=== PATIENT | male | born 1965 | race Caucasian/White ===

== ENCOUNTER 2016-10-14 15:14 | Inpatient (IN) | payer MEDICARE ==
[2016-10-14] MEDS ORDERED: SODIUM CHLORIDE 0.9% 1,000 ML IV STA (15:56)
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
[2016-10-14 16:30] LABS: Basophils % (A) 0 %; CH 30.2; CHCM 33.6; Eosinophils % (A) 0 %; Glucose,Whole Blood 99 mg/dL (75-99); HCT 42.5 % (39.0-53.0); HDW 2.24; Luc # (Auto) 0.11; Luc % (Auto) 2; Lymphocytes # (A) 1.8 k/uL (1.0-4.8); Lymphocytes % (A) 34 %; MCH 29.7 pg (25.0-35.0); MCHC 32.9 g/dL (31.0-37.0); MCV 90.2 fL (80.0-100.0); Monocytes # (A) 0.4 k/uL (0-1.0); Monocytes % (A) 8 %; Neutrophils # (A) 2.9 k/uL (1.3-7.7); Neutrophils % (A) 55 %; RBC 4.71 m/uL (4.30-5.90); RDW 12.9 % (11.5-15.5); WBC 5.2 k/uL (3.8-10.6); WBC (Perox) 5.14
[2016-10-14 16:37] LABS: INR 1.1 (<1.1); Partial Thromboplastin Time 24.8 sec (22.0-30.0); Prothrombin Time 10.9 sec (9.0-12.0)
[2016-10-14 16:39] LABS: ALT 26 U/L (21-72); AST 18 U/L (17-59); Alkaline Phosphatase 49 U/L (38-126); Anion Gap 12 mmol/L; Blood Urea Nitrogen 12 mg/dL (9-20); Calcium 9.9 mg/dL (8.4-10.2); Carbon Dioxide 25 mmol/L (22-30); Chloride 105 mmol/L (98-107); Glucose 112 mg/dL (74-99); Magnesium 1.7 mg/dL (1.6-2.3); Non-African American GFR(MDRD) >60 (>60 ml/min/1.73 sqM); Potassium 4.7 mmol/L (3.5-5.1); Sodium 142 mmol/L (137-145); Total Bilirubin 0.4 mg/dL (0.2-1.3); Total Protein 6.8 g/dL (6.3-8.2)
--- NOTE | 2016-10-14 16:40 | CT ---
EXAMINATION TYPE: CT brain wo con DATE OF EXAM: 10/14/2016 4:28 PM COMPARISON: NONE INDICATION: weakness and fatigue DLP: 1108.4 mGycm, Automated exposure control for dose reduction was used. CONTRAST: None CT of the brain is performed utilizing 3 mm thick sections through the posterior fossa and 3 mm thick sections through the remaining calvarium. Study is performed within 24 hours of arrival to the hosp ital. No abnormal hyperdensity is present to suggest an acute intracranial hemorrhage. No mass lesion is evident. No acute infarcts are evident. There is an old left parietal infarct. There is an old small frontal p arietal infarct on the left. There is mild ex vacuo effect on the left lateral ventricle. Ventricles and sulci are appropriate for the patient age. Paranasal sinuses and mastoid air cells within the [id number] are clear. IMPRESSIONS: 1. Old left frontal parietal and left parietal infarcts.
--- NOTE | 2016-10-14 16:42 | XR ---
EXAMINATION TYPE: XR chest 2V DATE OF EXAM: 10/14/2016 4:35 PM COMPARISON: NONE INDICATION: Weakness right side slurred speech TECHNIQUE: Single frontal view of the chest is obtained. FINDINGS: The heart size is normal. The pulmonary vasculature is normal. The lungs are clear. IMPRESSION: 1. No acute pulmonary process.
[2016-10-14 16:51] LABS: Creatine Kinase 131 U/L (55-170)
[2016-10-14 17:04] LABS: Creatine Kinase MB 0.5 ng/mL (0.0-2.4); Troponin I <0.012 ng/mL (0.000-0.034)
[2016-10-14 17:18] LABS: Amorphous Sediment,Urine Rare /hpf; Appearance,Urine Cloudy (Clear); Bacteria,Urine Occasional /hpf; Bilirubin,Urine Negative (Negative); Glucose,Urine (UA) Negative (Negative); Ketones,Urine 1+ (Negative); Leukocyte Esterase,Urine Negative (Negative); Nitrite,Urine Negative (Negative); PH, Urine 8.5 (5.0-8.0); Particle Count 18469; Protein,Urine Negative (Negative); Specific Gravity,Urine 1.014 (1.001-1.035); UA Billing (MACRO vs. MICRO) MICRO; Urobilinogen,Urine <2.0 mg/dL (<2.0); WBC,Urine 5 /hpf (0-5)
[2016-10-14] MEDS ORDERED: MAGNESIUM SULFATE-D5W PMX 1 GM in DEXTROSE/WATER 1 100ML.BAG IVPB ONE (17:35)
[2016-10-14] MEDS: SODIUM CHLORIDE 0.9% 1,000 ML IV SCH (22:02)
[2016-10-14] MEDS: GABAPENTIN 300 MG CAP PO SCH (22:05)
[2016-10-14] MEDS: DIVALPROEX 250 MG TABLET.DR PO SCH (22:05)
[2016-10-15] MEDS: SODIUM CHLORIDE 0.9% 1,000 ML IV SCH ×2 (05:54→17:26)
--- NOTE | 2016-10-15 08:20 | US ---
EXAMINATION TYPE: US carotid duplex BILAT DATE OF EXAM: 10/15/2016 8:01 AM COMPARISON: No previous CLINICAL HISTORY: Stenosis. Stroke EXAM MEASUREMENTS: RIGHT: Peak Systolic Velocity (PSV) cm/sec ----- Right CCA: 63.3 ----- Right ICA: 90.8 ----- Right ECA: 106.3 ICA/CCA ratio: 1.4 RIGHT: End Diastole cm/sec ----- Right CCA: 20.6 ----- Right ICA: 41.3 ----- Right ECA: 22.7 LEFT: Peak Systolic Velocity (PSV) cm/sec ----- Left CCA: 64.1 ----- Left ICA: 59.8 ----- Left ECA: 75.4 ICA/CCA ratio: 0.9 LEFT: End Diastole cm/sec ----- Left CCA: 19.3 ----- Left ICA: 22.3 ----- Left ECA: 19.3 VERTEBRALS (direction of flow): Right Vertebral: Antegrade Left Vertebral: Antegrade TECHNOLOGIST IMPRESSION: Bilateral intimal thickening, minimal plaque right bulb, no elevated veloci ties, no significant stenosis IMPRESSION: I do not see evidence of a hemodynamically significant stenosis in either carotid system. Criteria for Assigning % of Stenosis / Diameter reduction (Estimation based on the indirect measurements of the internal carotid artery velocities (ICA PSV). 1. Normal (no stenosis)=ICA PSV < 125 cm/s: ratio < 2.0: ICA EDV<40 cm/s. 2. Less than 50% stenosis=ICA PSV < 125 cm/s: ratio < 2.0: ICA EDV<40 cm/s. 3. 50 to 69% stenosis=ICA PSV of 125 to 230 cm/s: ration 2.0 ? 4.0: ICA EDV 40-100 cm/s. 4. Greater than 70% stenosis to near occlusion= ICA PSV > 230 cm/s: ratio > 4.0: ICA EDV > 100 cm/s. 5. Near occlusion= ICA PSV velocities may be low or undetectable: variable ratio and ICA EDV. 6. Total occlusion=unable to detect flow.
[2016-10-15] MEDS: ATORVASTATIN 80 MG TAB PO SCH (08:39)
[2016-10-15] MEDS: DIVALPROEX 250 MG TABLET.DR PO SCH ×2 (08:39→20:53)
[2016-10-15] MEDS: GABAPENTIN 300 MG CAP PO SCH ×2 (08:39→17:25)
[2016-10-15] MEDS ORDERED: LISINOPRIL 20 MG TAB PO SCH (09:00)
[2016-10-15] MEDS ORDERED: ASPIRIN 81 MG CHEW PO SCH (09:00)
[2016-10-15] MEDS: MULTIVITAMINS, THERA 1 EACH TAB PO SCH (15:01)
--- NOTE | 2016-10-15 16:15 | HP ---
DATE OF ADMISSION: 10/14/2016 51 -year-old admitted with significant residual weakness on the right side of the body. The patient has ( ) in the past. Came in with complaints of ( ) came in with multiple nonspecific neurological complaints including possible loss of consciousness for about 20 minutes about a couple of days ago. Since then, the patient was extensively drowsy. No seizure like activity at that time. It is not even very clear that the patient actually lost consciousness ( ). was unable to wake him up for about 20 minutes. The patient denied any weakness at that time. The patient was tired all day. Apparently, yesterday, ( ) drowsy. The patient also while sleeping yesterday had some shakiness or seizure like activity only in the left arm and the patient was arousable at that time. The patient did not ( ) bowel or bladder incontinence. The patient is on Depakote. A year ago, patient had similar symptoms of loss of consciousness because of which the patient was started on Depakote at that time. Apparently patient underwent EEG in ( ) Hospital and EEG at that time was negative for any seizure ( ) but still the patient was started on Depakote. Levels essentially within normal limits. The patient denied any fever or chills. The patient ( ) denied any ( ). was not sure but he may have left sided facial droop as per the . Although CT of the head and carotid Doppler essentially negative. The patient is on aspirin at home ( ). Neurology was consulted. The patient quit smoking in the month of July. REVIEW OF SYSTEMS: CONSTITUTIONAL: The patient has lethargy ( ). The patient does not have any ( ) right side of the body. HEENT: No recent visual problems or hearing problems. Denied any sore throat. CARDIOVASCULAR: No chest pain, orthopnea, PND, no palpitations, no syncope. PULMONARY: No shortness of breath, no cough, no hemoptysis. GASTROINTESTINAL: No diarrhea, no nausea, no vomiting, no abdominal pain. Normoactive bowel sounds. NEUROLOGICAL: As per history of present illness. HEMATOLOGICAL: Denies any bleeding or petechiae. GENITOURINARY: Denies any burning micturition, frequency, or urgency. MUSCULOSKELETAL/RHEUMATOLOGICAL: Denies any joint pain, swelling, or any muscle pain. ENDOCRINE: Denies any polyuria or polydipsia. The rest of the 14 point review of systems is negative. Home medications include: 1. Aspirin. 2. Atorvastatin. 3. Depakote. 4. Gabapentin. 5. Lisinopril. 6. Multivitamin. ALLERGIES: No known drug allergies. PAST SURGICAL HISTORY: CVA/TIA, ( ) weakness right side of the body, hyperlipidemia, hypertension, asthma, anxiety, depression. SOCIAL HISTORY: Former smoker. Quit smoking. Quit smoking July last year. Denied any alcohol abuse. No alcohol use but occasionally uses marijuana. FAMILY HISTORY: Hypertension, diabetes mellitus. PHYSICAL EXAMINATION: VITAL SIGNS: Temperature 98.2, pulse of 80, respiratory rate of 18, blood pressure 138/89. Saturating at 99% on room air. GENERAL: The patient is alert and oriented x3, not in any acute distress. Well developed, well nourished. HEENT: Pupils are round and equally reacting to light. EOMI. No scleral icterus. No conjunctival pallor. Normocephalic, atraumatic. No pharyngeal erythema. No thyromegaly. CARDIOVASCULAR: S1 and S2 present. No murmurs, rubs, or gallops. PULMONARY: Chest is clear to auscultation, no wheezing or crackles. ABDOMEN: Soft, nontender, nondistended, normoactive bowel sounds. No palpable organomegaly. MUSCULOSKELETAL: No joint swelling or deformity. EXTREMITIES: No cyanosis, clubbing, or pedal edema. NEUROLOGICAL: I did not see anything ( ) at this point of time, the patient has residual weakness of 4/5 strength in right upper limb and lower limb. No other focal neurological deficits appreciated. SKIN: No rashes. LABORATORY DATA: CBC, BMP essentially within normal limits. Carotid Doppler within normal limits. CT scan of the head showed old stroke in the left frontal parietal area. EKG essentially within normal limits. ASSESSMENT AND PLAN: 1. The patient is admitted to the hospital. We will rule out ( ) will obtain lipid panel and echocardiogram. I cannot completely rule out syncopal episode either. Patient does not have any signs or symptoms of ( ) at this point in time. 2. ( ) the patient will be continued on aspirin and we will await further recommendations from neurology. 3. Hyperlipidemia. 4. Possibility of seizure. The patient will be continued on Depakote. I am not ( ) patient may need an EEG. Patient's history is not ( ) consistent with seizure. Further evaluation and management as per and neurology. The patient may need ( ) and MRI as well as EEG. Patient will be continued on Depakote and Gabapentin. 5. Hypertension. ( ) hypertension, I will hold off on Lisinopril. I cannot completely rule out ( ).
[2016-10-15] MEDS: CLOPIDOGREL 75 MG TAB PO SCH (20:53)
[2016-10-15] MEDS: FAMOTIDINE 20 MG TAB PO SCH (20:54)
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
[2016-10-16] MEDS: GABAPENTIN 300 MG CAP PO SCH ×4 (00:06→20:39)
[2016-10-16] MEDS: SODIUM CHLORIDE 0.9% 1,000 ML IV SCH ×3 (04:07→20:39)
[2016-10-16 06:56] LABS: Cholesterol 111 mg/dL (<200); HDL Cholesterol 44 mg/dL (40-60); Triglycerides 155 mg/dL (<150)
[2016-10-16] MEDS ORDERED: ACETAMINOPHEN TAB 325 MG TAB PO PRN (07:43)
[2016-10-16] MEDS: CLOPIDOGREL 75 MG TAB PO SCH (08:18)
[2016-10-16] MEDS: ATORVASTATIN 80 MG TAB PO SCH (08:19)
[2016-10-16] MEDS: FAMOTIDINE 20 MG TAB PO SCH ×2 (08:19→20:38)
[2016-10-16] MEDS: DIVALPROEX 250 MG TABLET.DR PO SCH ×2 (08:19→20:38)
[2016-10-16] MEDS: MULTIVITAMINS, THERA 1 EACH TAB PO SCH (08:19)
[2016-10-16] MEDS: HYDROcodone/APAP 5-325MG 1 EACH TAB PO PRN ×3 (08:58→22:08)
--- NOTE | 2016-10-16 09:35 | ECHOF ---
Referral Reason:TIA/ syncope MEASUREMENTS -------- HEIGHT: 172.7 cm WEIGHT: 85.3 kg BP: RVIDd: 2.5 cm (< 3.3) IVSd: 1.0 cm (0.6 - 1.1) LVIDd: 4.9 cm (3.9 - 5.3) LVPWd: 1.3 cm (0.6 - 1.1) IVSs: 1.4 cm LVIDs: 3.0 cm LVPWs: 1.4 cm LA Diam: 2.9 cm (2.7 - 3.8) LAESV Index (A-L): 20.09 ml/m Ao Diam: 3.2 cm (2.0 - 3.7) AV Cusp: 2.5 cm (1.5 - 2.6) LA Diam: 3.9 cm (2.7 - 3.8) MV EXCURSION: 17.701 mm (> 18.000) MV EF SLOPE: 81 mm/s (70 - 150) EPSS: 0.8 cm MV E Dav: 0.72 m/s MV DecT: 184 ms MV A Dav: 0.82 m/s MV E/A Ratio: 0.88 RAP: 5.00 mmHg RVSP: 14.31 mmHg FINDINGS -------- Sinus rhythm. This was a technically good study. There is borderline concentric left ventricular hypertrophy. Overall left ventricular systolic function is low-normal with, an EF between 50 - 55 %. The right ventricle is normal in size. The left atrial size is normal. The right atrial size is normal. There is mild aortic valve sclerosis. There is no evidence of aortic regurgitation. Mild mitral annular calcification present. Mild mitral regurgitation is present. Mild tricuspid regurgitation present. There is no evidence of pulmonary hypertension. The right ventricular systolic pressure, as measured by Doppler, is 14.31mmHg. There is no pulmonic regurgitation present. The aortic root size is normal. There is no pericardial effusion. CONCLUSIONS -------- 1. There is borderline concentric left ventricular hypertrophy. 2. Overall left ventricular systolic function is low-normal with, an EF between 50 - 55 %. 3. There is mild aortic valve sclerosis. 4. Mild mitral annular calcification present. 5. Mild mitral regurgitation is present. 6. Mild tricuspid regurgitation present. 7. There is no evidence of pulmonary hypertension. 8. The right ventricular systolic pressure, as measured by Doppler, is 14.31mmHg. INSTRUCTOR [employer]: Diandra Winter RDCS
--- NOTE | 2016-10-16 13:47 | P.PN ---
Subjective Principal diagnosis: Syncope and dysarthria This 51 year male continuing to be evaluated by the neurology service. He was brought to [facility] emergency room for an episode of unresponsiveness. He has a history of ischemic stroke 6 years ago. He has persistent right-sided mild weakness and severe sensory deficit. Witnesses indicate that he had speech difficulties and possible jerking movements of his left upper extremity. He denies a history of seizures. He does take Depakote for mood stabilization. His CT of the brain showed an old ischemic stroke in the left frontal and left parietal lobes. His aspirin has been switched to Plavix. Carotid Doppler showed no hemodynamically significant stenosis. Labs include a triglyceride level of 155, total cholesterol of 111, LDL of 36, and HDL of 44. An EEG and MRI have been ordered and have not yet been accomplished. At the time of my exam he is resting comfortably in bed eating lunch. Objective - Vital Signs Vital signs: Vital Signs Temp 97.2 F L 10/16/16 08:00 Pulse 69 10/16/16 12:00 Resp 16 10/16/16 12:00 BP 143/99 10/16/16 12:00 Pulse Ox 97 10/16/16 12:00 Intake & Output 10/15/16 10/16/16 10/16/16 18:59 06:59 18:59 Intake Total 280 200 180 Output Total 950 550 Balance 280 -750 -370 Weight 80.8 kg Intake: Oral 280 200 180 Output: Urine 950 550 Other: Voiding Method Toilet Toilet Toilet - Constitutional General appearance: Present: average body habitus, no acute distress - EENT Eyes: Present: PERRLA. Absent: abnormal pupil, ptosis ENT: Present: hearing grossly normal - Neck Neck: Present: normal ROM. Absent: rigidity - Respiratory Respiratory: negative: prolonged expiration, prolonged inspiration - Cardiovascular Rhythm: regular - Gastrointestinal General gastrointestinal: Absent: distended, tenderness - Neurologic Neurologic Comment(s): Is alert awake and oriented 3. There is no facial asymmetry. Speech is mildly dysarthric, with mild occasional expressive aphasia. Strength remains 5 minus out of 5 on the right and 5 out of 5 on the left sensory exam shows a severe reduction to light touch more so on the right lower extremity but also on the right upper extremity.. Note is made of partial amputation of 3 fingers on the right hand. - Labs CBC & Chem 7: 10/14/16 16:15 10/14/16 16:15 Labs: Abnormal Lab Results - Last 24 Hours (Table) 10/16/16 Range/Units 06:00 Triglycerides 155 H (<150) mg/dL Assessment and Plan (1) Dysarthria Status: Chronic (2) Expressive aphasia Status: Chronic (3) History of ischemic left MCA stroke Status: Chronic (4) Right hemiparesis Status: Chronic (5) Sensory deficit, right Status: Acute (6) Syncope Status: Acute (7) CVA (cerebral vascular accident) Status: Chronic Plan: Was thought that the patient was having slightly worsening expressive aphasia and dysarthria. MRI is pending to rule out new stroke activity. An EEG is also pending to evaluate the possibility of seizure-like activity because of the witnessed movement of his left upper extremity. Note that there has been no recurrence of this. Continue IV hydration. Continue work with physical and occupational therapy. Continue work with speech therapy. We will continue to follow and make further recommendations based on the above studies. I have performed a history and physical on the above patient. I have reviewed the above note, and agree.
--- NOTE | 2016-10-16 14:57 | MR ---
EXAMINATION TYPE: MR brain wo con DATE OF EXAM: 10/16/2016 2:44 PM COMPARISON: CT brain 10/14/2016 HISTORY: CVA T1-weighted sagittal, T2, FLAIR, and diffusion axial, and T2 coronal coronal views of the brain are s ubmitted. There is no evidence of acute ischemia. There is a large area of encephalomalacia involving the left temporal, parietal and frontal lobes. Craniocervical junction maintained. Sella turcica has a normal appearance. Changes of chronic mild sinusitis noted. Abnormal signal seen adjacent to the areas of encephalomalacia within the white matter likely in the basis of chronic white matter ischemia.. IMPRESSION: 1. No acute intracranial process. 2. Large areas of remote ischemia with encephalomalacia predominantly involving the left frontal, par ietal and temporal lobes.
--- NOTE | 2016-10-16 18:09 | P.PN ---
Subjective Date of service 10/16/2016. Progress note being dictated for Dr. Torres. Interval history: This is a 51-year-old gentleman admitted with syncope, dysarthria, possible seizure, possible CVA/TIA and multiple other medical issues in a patient with history of CVA with residual right-sided weakness, dysarthria and facial droop. Evaluated by neurology with recommendations noted. Neurology workup in progress. EEG and MRI pending. Maintained on Plavix. No seizure activity reported. Telemetry sinus rhythm. Denies chest pain, palpitations or increasing shortness of breath. Objective - Vital Signs Vital signs: Vital Signs Temp 97.2 F L 10/16/16 08:00 Pulse 69 10/16/16 12:00 Resp 16 10/16/16 12:00 BP 143/99 10/16/16 12:00 Pulse Ox 97 10/16/16 12:00 Intake & Output 10/15/16 10/16/16 10/16/16 18:59 06:59 18:59 Intake Total 280 200 530 Output Total 950 550 Balance 280 -750 -20 Weight 80.8 kg Intake: Oral 280 200 530 Output: Urine 950 550 Other: Voiding Method Toilet Toilet Toilet - Exam PHYSICAL EXAM: VITAL SIGNS: As above GENERAL: [Lying in bed, no acute distress] HEENT: [Pupils equal conjunctiva normal.] NECK: [Supple, no JVD] RESPIRATORY EFFORT:[Normal] LUNGS: [Essentially clear, no wheezing or crackles or rhonchi, bilateral bases diminished] CARDIOVASCULAR[regular S1 and S2, no edema] GI: [Abdomen soft, nontender, positive bowel sounds.] PSYCH: [Alert and oriented -3, mood and affect normal.] SKIN: Right hand with partial amputation of 3 fingers. NEURO: Gross neurological examination did not reveal any focal deficits. Mild expressive aphasia, mild dysarthria. Residual weakness 4/5 right upper and lower limb, residual mild left facial droop. - Labs CBC & Chem 7: 10/14/16 16:15 10/14/16 16:15 Labs: Abnormal Lab Results - Last 24 Hours (Table) 10/16/16 Range/Units 06:00 Triglycerides 155 H (<150) mg/dL Assessment and Plan Plan: 1. [Syncope, possible acute TIA ,ruling out Acute CVA]. Possible seizures 2. [Hyperlipidemia]. 3. [Hypertension]. 4. [History of ischemic CVA, with Chronic dysarthria, expressive aphasia and residual right hemiparesis]. 5. Low normal LV function, EF 50-55% per echo 6. [History of nicotine abuse recently quit in July 2016]. Plan: Continue on current medication regime ,monitoring and symptomatic treatment. MRI and EEG pending. Maintain IV hydration, seizure precautions. PT/ OT/speech therapy. Discharge planning in progress pending MRI results and neurology clearance. The impression and plan of care has been dictated as directed. : I performed a H&P examination of this patient and discussed the same with the dictator. I agree with the dictator's note. Any additional findings/opinions/ etc. will be noted.
[2016-10-17] MEDS: HYDROcodone/APAP 5-325MG 1 EACH TAB PO PRN ×2 (05:38→12:14)
[2016-10-17] MEDS: DIVALPROEX 250 MG TABLET.DR PO SCH (09:35)
[2016-10-17] MEDS: ATORVASTATIN 80 MG TAB PO SCH (09:35)
[2016-10-17] MEDS: CLOPIDOGREL 75 MG TAB PO SCH (09:35)
[2016-10-17] MEDS: GABAPENTIN 300 MG CAP PO SCH (09:37)
[2016-10-17] MEDS: MULTIVITAMINS, THERA 1 EACH TAB PO SCH (09:37)
[2016-10-17] MEDS: FAMOTIDINE 20 MG TAB PO SCH (09:37)
[2016-10-17 09:40] VITALS: BP 137/91; PULSE 68; RESP 16; TEMP 97
[2016-10-17 14:35] VITALS: BMI 27.1
--- NOTE | 2016-10-17 15:15 | P.PN ---
Subjective Principal diagnosis: Syncope and dysarthria This 51 year male continuing to be evaluated by the neurology service. He was brought to [facility] emergency room for an episode of unresponsiveness. He has a history of ischemic stroke 6 years ago. He has persistent right-sided mild weakness and severe sensory deficit. Witnesses indicate that he had speech difficulties and possible jerking movements of his left upper extremity. He denies a history of seizures. He does take Depakote for mood stabilization. His CT of the brain showed an old ischemic stroke in the left frontal and left parietal lobes. His aspirin has been switched to Plavix. Carotid Doppler showed no hemodynamically significant stenosis. His MRI showed no new areas of ischemia. His EEG was normal. At the time of my exam he is resting comfortably in bed eating lunch. Objective - Vital Signs Vital signs: Vital Signs Temp 97 F L 10/17/16 08:00 Pulse 68 10/17/16 08:00 Resp 16 10/17/16 08:00 BP 137/91 10/17/16 08:00 Pulse Ox 97 10/17/16 09:07 Intake & Output 10/16/16 10/17/16 10/17/16 18:59 06:59 18:59 Intake Total 530 1080 360 Output Total 550 1350 300 Balance -20 -270 60 Weight 80.9 kg 80.9 kg Intake: Oral 530 1080 360 Output: Urine 550 1350 300 Other: Voiding Method Toilet Toilet Toilet # Voids 1 2 - Constitutional General appearance: Present: average body habitus, no acute distress - EENT Eyes: Present: EOMI, PERRLA. Absent: abnormal pupil, ptosis ENT: Present: hearing grossly normal - Neck Neck: Present: normal ROM. Absent: rigidity - Respiratory Respiratory: negative: prolonged expiration, prolonged inspiration - Cardiovascular Rhythm: regular - Gastrointestinal General gastrointestinal: Absent: distended, tenderness - Neurologic Neurologic Comment(s): Is alert awake and oriented 3. Speech and language are unchanged and mildly dysarthric with mild expressive aphasia. This is a chronic finding. There is no facial asymmetry. No new strength deficits are noted. Sensory deficit is unchanged. No tremors or seizure-like activities are seen. - Labs CBC & Chem 7: 10/14/16 16:15 10/14/16 16:15 Assessment and Plan (1) Dysarthria Status: Chronic (2) Expressive aphasia Status: Chronic (3) History of ischemic left MCA stroke Status: Chronic (4) Right hemiparesis Status: Chronic (5) Sensory deficit, right Status: Resolved (6) Syncope Status: Suspected (7) CVA (cerebral vascular accident) Status: Chronic (8) Peripheral neuropathy Status: Acute (9) TIA (transient ischemic attack) Status: Acute Plan: It Was thought that the patient was having slightly worsening expressive aphasia and dysarthria. TIA cannot be ruled out. MRI of the brain did rule out new stroke activity. His EEG was normal. Note that there has been no recurrence of seizure-like activity. Continue work with physical and occupational therapy. Continue Plavix and mitigation of other stroke risks. As for his chronic painful peripheral neuropathy, he is on quite high doses of neuropathic pain medications. These have been maximized, and he still has significant painful symptoms. We will see him on an outpatient basis discuss further options. He is otherwise cleared from a neurological standpoint. I have performed a history and physical on the above patient. I have reviewed the above note, and agree.
--- NOTE | 2016-10-17 22:48 | EEG ---
DATE OF SERVICE: 10/16/2016 INDICATIONS FOR EXAMINATION: Syncope and questionable seizure. AGE: 51Y DESCRIPTION OF THE PROCEDURE: This EEG was performed using a 21-channel digital electroencephalograph, following the international 10-20 system. DESCRIPTION OF THE RECORDING: From the beginning of the tracing, and with the patient's eyes closed, the background rhythm was mostly consisting of 8 Hz alpha frequency in the posterior occipital leads. No obvious asymmetry is seen. Photic stimulation was performed with a good driving response seen. No pathological waves were elicited. Hyperventilation was not performed. The patient remains awake throughout the tracing. No epileptiform discharges were seen. His EKG lead showed a regular rate and rhythm. INTERPRETATION: This awake EEG can be considered within normal limits. There was no asymmetry seen. No epileptiform discharges were noticed. The absence of epileptiform discharges does not rule out the diagnosis of epilepsy; therefore, clinical correlation is recommended.
--- NOTE | 2016-10-18 07:42 | DS ---
DATE OF ADMISSION: 10/14/2016 DATE OF DISCHARGE: 10/17/2016 FINAL DIAGNOSES: 1. Syncope, possible acute transient ischemic attack. 2. Hypertension. 3. Hyperlipidemia. 4. History of ischemic cerebrovascular accident with chronic . 5. Low normal left ventricular function, ejection fraction 50% to 55% on 2-D echo. 6. History of nicotine dependence. 7. Increased random blood sugar. DISCHARGE DISPOSITION: The patient will be discharged in a stable condition with guarded prognosis. HISTORY OF PRESENT ILLNESS: This 51-year-old gentleman with a past medical history of multiple medical problems was admitted with features of dysarthria and TIA. The MRA was done. Neurovascular work-up was also done. Carotid Doppler showed no evidence of hemodynamic significant stenosis in the carotid system. MRI of the brain was done, which showed no acute intracranial process, large areas of remote ischemic with encephalomalacia now involving the left frontal parietal template is also noted. Patient also failed with sleeper medications per family. On exam, vitals are stable. CARDIOVASCULAR SYSTEM: S1, S2, muffled. ABDOMEN: Soft. NERVOUS SYSTEM: As mentioned earlier. Otherwise labs are noted. The patient will be discharged in a stable condition with guarded prognosis with the following advice: 1. Diet is cardiac. 2. Activity limited until followup. 3. Follow up with Dr. Ramirez in 2 to 3 days. 4. Follow up with Dr. Moraes in 2 weeks. The medications are: 1. Lipitor 80 mg p.o. daily. 2. Plavix 75 mg p.o. daily. 3. Depakote 750 mg p.o. b.i.d. 4. Pepcid 20 mg p.o. b.i.d. 5. Neurontin 300 mg p.o. t.i.d. 6. Zestril 20 mg p.o. daily. 7. Multivitamins 1 p.o. daily. 8. Trazodone 50 mg p.o. q.h.s. p.r.n. MTDD
== END 2016-10-17 17:41 | disposition home or self-care (01) | DRG 69 ==
LOC: EC 15:14 → 6SEL 19:54
PROVIDERS: ADMIT Internal Medicine; ATTEND Internal Medicine
DX: G45.9 Transient cerebral ischemic attack, unspecified (principal); I69.351 Hemiplegia and hemiparesis following cerebral infarction affecting right dominant side; I10 Essential (primary) hypertension; E78.5 Hyperlipidemia, unspecified; I69.322 Dysarthria following cerebral infarction; I69.320 Aphasia following cerebral infarction; G62.9 Polyneuropathy, unspecified; J45.909 Unspecified asthma, uncomplicated; R32 Unspecified urinary incontinence; F31.9 Bipolar disorder, unspecified; F12.90 Cannabis use, unspecified, uncomplicated; Z87.891 Personal history of nicotine dependence; Z79.82 Long term (current) use of aspirin; Z79.899 Other long term (current) drug therapy
CPT/HCPCS: 36415; 70450; 70551; 71020; 80053; 80061; 80164; 81001; 82550; 82553; 83090; 83735; 84484; 85025; 85610; 85730; 87040; 93005; 93306; 93880; 94760; 95819; 96361; 96365; 99285

== ENCOUNTER → 2016-12-27 | Outpatient (CLI) | payer MEDICARE ==
--- NOTE | 2016-12-27 21:30 | MR ---
EXAMINATION TYPE: MR knee RT wo con DATE OF EXAM: 12/27/2016 8:07 PM COMPARISON: Outside right knee x-ray December 26, 2016. HISTORY: Pain Entire Right Knee x30 years TECHNIQUE: Multiplanar, multisequence images of the knee is performed without IV contrast. FINDINGS: MEDIAL MENISCUS: Anterior horn is intact without tear. Slightly globular increased signal posterior h orn of medial meniscus is present, does not extend to articular surface. LATERAL MENISCUS: Anterior and posterior horns are intact without tear. CRUCIATE LIGAMENTS: The anterior and posterior cruciate ligaments are intact and unremarkable. COLLATERAL LIGAMENTS: The medial collateral ligament and lateral collateral ligament complex are inta ct and unremarkable. EXTENSOR MECHANISM: Visualized quadriceps and patellar tendons are intact. EFFUSION: There is a small suprapatellar joint effusion. POPLITEAL CYST: No popliteal/bocanegra cyst. TRICOMPARTMENT SPACES: There is mild tricompartment joint space loss and spurring. CARTILAGE: No significant chondromalacia patella is seen. Tricompartment cartilage is fairly well-alexander ntained. BONE MARROW SIGNAL: No focal abnormal marrow signal is appreciated. OTHER: From the medial aspect of distal medial femoral condyle there is broad-based ossific projectio n seen best coronal image 19 with spurring inferiorly consistent with osteochondroma along the wood stock blank handler ior aspect. Some reactive edema in the adjacent soft tissue posteriorly and medially is seen. IMPRESSION: 1. Intrasubstance tear posterior horn of medial meniscus. 2. Small suprapatellar joint effusion. 3. Mild tricompartment degenerative changes. 4. Benign appearing osteochondroma posterior medial aspect distal femoral metaphysis or possibly a co rtical desmoid, reactive adjacent inflammatory edema in the posterior medial subcutaneous fat is note d.
== END | disposition home or self-care (01) ==
LOC: RADMRIMAIN 19:33
PROVIDERS: ATTEND Orthopaedic Surgery
DX: S83.241A Other tear of medial meniscus, current injury, right knee, initial encounter (principal); D16.21 Benign neoplasm of long bones of right lower limb; M25.461 Effusion, right knee

== ENCOUNTER → 2019-08-27 | Outpatient (CLI) | payer OTHER ==
--- NOTE | 2019-08-27 09:10 | US ---
EXAMINATION TYPE: US abdomen complete DATE OF EXAM: 08/27/2019 COMPARISON: NONE CLINICAL HISTORY: R10.9 Abdominal Pain. EXAM MEASUREMENTS: Liver Length: 13.5 cm Gallbladder Wall: 0.2 cm CBD: 0.1 cm Spleen: 9.6 cm Right Kidney: 10.3 x 5.0 x 5.1 cm Left Kidney: 10.8 x 5.8 x 5.3 cm Pancreas: partially obscured by bowel gas, portions visualized wnl Liver: wnl Gallbladder: wnl Evidence for sonographic Patiño's sign: No CBD: wnl Spleen: wnl Right Kidney: Inferior pole partially obscured by bowel gas, otherwise wnl Left Kidney: cyst measuring 3.3 x 3.5 x 2.6cm is simple Upper IVC: wnl Abd Aorta: wnl as seen, bifurcation obscured by bowel gas There is no ascites. The liver is homogenous. The intrahepatic portion of the IVC and proximal abdominal aorta are within normal limits. There is no evidence of cholelithiasis. Common bile duct is unremarkable. The visu alized portions of the pancreas are homogenous. The spleen is unremarkable. Kidneys are symmetric a nd free of hydronephrosis. IMPRESSION: Limited exam. Simple cyst left kidney.
== END | disposition home or self-care (01) ==
LOC: RADUSWWP 08:03
DX: N28.1 Cyst of kidney, acquired (principal)
CPT/HCPCS: 76700

== ENCOUNTER → 2020-09-29 | Outpatient (CLI) | payer OTHER ==
--- NOTE | 2020-09-29 17:34 | CT ---
EXAMINATION TYPE: CT abdomen pelvis w con DATE OF EXAM: 09/29/2020 COMPARISON: Ultrasound abdomen 08/27/2019 INDICATION: LLQ pain DLP: 891.1 mGycm, Automated exposure control for dose reduction was used. CONTRAST: 100 mL of Isovue 300. Study performed with Oral Contrast TECHNIQUE: Axial images were obtained from above the diaphragm to the pubic rami in the axial plane a t 5 mm thick sections. Reconstructed images are reviewed on the computer in the coronal plane. FINDINGS: Limited CT sections are obtained the lung bases. The lung bases are clear. CT ABDOMEN: Liver: Couple of very tiny hypodensities may be within the anterior left lobe liver too small charact erize could be hepatic cysts Spleen: Normal Pancreas: Normal Adrenal glands: The adrenal glands are normal. Gallbladder: Normal Kidneys: No masses are evident. No hydronephrosis is present. There is a 3.2 cm cyst measuring 9 Ho unsfield units along the anterior left mid kidney. This corresponds to the ultrasound findings. Dali yed images were obtained through the kidneys, which remain unremarkable. Aorta: Vascular calcification is within the aorta. Inferior vena cava: Normal. CT PELVIS: Loops of bowel within the abdomen and pelvis are normal. Diverticulosis without acute diverticulitis is within the sigmoid colon. There are loops of bowel which are incompletely distended or lack ora l contrast limiting their evaluation. Appendix: Normal as visualized. Urinary bladder: Normal. Genitourinary structures: Prostate is normal Osseous structures: No suspicious lytic or sclerotic lesions. There may be some sacroiliac iliac join t effusion. Correlate for ankylosing spondylitis. IMPRESSIONS: 1. Simple appearing left renal cyst. 2. Diverticulosis without acute diverticulitis. 3. Fusion of the sacroiliac joints, correlate for ankylosing spondylitis.
== END | disposition home or self-care (01) ==
LOC: RADCTMAIN 10:30
PROVIDERS: ATTEND Surgery Plastic and Reconstructive Surgery
DX: N28.1 Cyst of kidney, acquired (principal); K57.30 Diverticulosis of large intestine without perforation or abscess without bleeding; M43.28 Fusion of spine, sacral and sacrococcygeal region
CPT/HCPCS: 74177; Q9967

== ENCOUNTER → 2021-09-28 | Outpatient (CLI) | payer OTHER ==
--- NOTE | 2021-09-28 12:43 | CONS ---
CONSULTATION DATE OF SERVICE: 09/28/2021 56-year-old gentleman has been evaluated in [facility] for possible obstructive sleep apnea-hypopnea syndrome. HISTORY OF PRESENT ILLNESS SLEEP-WAKE EVALUATION: SLEEP SCHEDULE: Patient's usual sleep schedule from July 14 midnight until 8 or 9:00 am. FALLING ASLEEP: Usually no problems with falling asleep, although he has TV set in bedroom. DURING SLEEP: He sleeps on the back and side position. He has loud snoring and witnessed episodes of stopped breathing during sleep. The patient wakes up from sleep with episodes of choking, nocturia, grinding teeth, heartburn, gasping for air, sleep talking up to 5 times with 4 episodes of nocturia. Positive history of sleep talking, jerking movement, jumping during the sleep. No history of hypnagogic hallucinations, sleep paralysis or cataplexy. DURING THE DAY/SLEEP WAKE EVALUATION: In the morning, the patient wakes up tired, has difficulties paying attention, falling asleep during the day, worries about his sleep, has episodes of irritability, depression, problems with concentration. [place] Sleepiness Scale significantly increased to 18. He may take one nap during the day. No vivid dreams during the nap. PAST MEDICAL HISTORY: Positive for stroke in 2011 with right side weakness with some residual deficit and 3 episodes of TIA, hyperlipidemia, back problems, asthma, acid reflux, headaches. PAST SURGICAL HISTORY: Hernia repair. MEDICATIONS: Clopidogrel, metoprolol, atorvastatin, gabapentin, sildenafil, fluticasone inhaler. SOCIAL HISTORY: The patient is using marijuana, alcohol consumption occasional. FAMILY HISTORY: Hypertension heart problems. REVIEW OF SYSTEMS: Snoring, multiple awakenings from sleep, significant excessive daytime sleepiness. PHYSICAL EXAMINATION: GENERAL: gentleman without distress. Some weakness on the right side. BP 159/85 85, HR 72, RR 16, height 5 feet 7 inches, weight 187, body mass index 29.2, temperature 98.4, oxygen saturation at room air 96%. Oropharynx: Low position of soft palate. Neck is 17 inches in circumference. NECK: Supple, no JVD. Thyroid is not palpable. LUNGS: Clear to percussion and to auscultation. Good air exchange. No wheezing or rhonchi. HEART: S1, S2 regular. No murmurs, gallops, or rubs. ABDOMEN: Soft and nontender. Bowel sounds are present. No organomegaly appreciated. EXTREMITIES: No clubbing or cyanosis. SPRING UPHOLSTERER: Slight weakness on the right side. IMPRESSION: 1. Loud snoring, witnessed episodes of stopped breathing during sleep low position of soft palate wide neck, 17 inches in circumference, multiple awakenings from sleep, significant excessive daytime sleepiness, obstructive sleep apnea-hypopnea syndrome. 2. Significant excessive daytime sleepiness with [place] Sleepiness Scale of 18 dictate necessity to include hypersomnia in differential diagnosis, stroke could be the reason for secondary narcolepsy. 3. History of stroke and transient ischemic attack times x3 with some right-sided residual deficit. 4. Hypertension. 5. Hyperlipidemia. 6. Back problems. 7. Asthma. 8. Acid reflux. 9. Headaches. 10.Significant amount of movements during the sleep, possibly periodic limb movements. Rule out REM sleep behavioral disorder. PLAN: 1. Polysomnography for evaluation of patient's breathing during sleep. 2. CPAP/BiPAP titration if sleep study confirms obstructive sleep apnea-hypopnea syndrome. 3. Preferable position during sleep on the side. 4. No driving if patient feels any sleepiness. 5. I will see patient for follow up visit to explain results of testing and following plan. Thank you very much for referring this patient for consultation. Sincerely, Khari Lou MD, PhD, FAASM Diplomat of [place] [employer] Sleep Medicine Board of [place] [employer] Victim Witness Administrator of [facility] [place] MMODL / RANJITN: [id number] /
== END ==
LOC: SLEEP 10:40
PROVIDERS: ATTEND Internal Medicine
DX: G47.33 Obstructive sleep apnea (adult) (pediatric) (principal); I10 Essential (primary) hypertension; E78.5 Hyperlipidemia, unspecified; J45.909 Unspecified asthma, uncomplicated; K21.9 Gastro-esophageal reflux disease without esophagitis; M53.80 Other specified dorsopathies, site unspecified; Z86.73 Personal history of transient ischemic attack (TIA), and cerebral infarction without residual deficits; Z87.891 Personal history of nicotine dependence
CPT/HCPCS: 99211

== ENCOUNTER → 2021-10-19 | Outpatient (CLI) | payer OTHER ==
--- NOTE | 2021-10-19 20:34 | SFUN ---
SLEEP CENTER FOLLOW UP NOTE DATE OF SERVICE: 10/19/2021 This 56-year-old gentleman has been followed in the Sleep Center for treatment of significant excessive daytime sleepiness, snoring and awakenings from sleep. Recently the patient had a polysomnogram, and I discussed the results of his sleep study with the patient and his family in detail. Polysomnogram did not show significant abnormalities of respiration. Oxygenation was normal during sleep. The patient continues to feel significant sleepiness. Today his [place] Sleepiness Scale is 16. During previous visit it was 18. MEDICATIONS: Clopidogrel, metoprolol, atorvastatin, Gabapentin, sildenafil, fluticasone. PHYSICAL EXAMINATION: GENERAL: Pleasant patient in no distress. VITAL SIGNS: BP 152/97, HR 74, RR 12, oxygen saturation at room air 98%. Temperature 97.5. On the left arm, blood pressure is 149/93. HEENT: PERRLA, EOMI, evaluation of oropharynx showed tongue protrudes midline. Low position of soft palate. NECK: Supple, no JVD. Thyroid is not palpable. LUNGS: Clear to percussion and to auscultation. Good air exchange. No wheezing or rhonchi. HEART: S1, S2 regular. No murmurs, gallops, or rubs. ABDOMEN: Soft and nontender. Bowel sounds are present. No organomegaly appreciated. EXTREMITIES: No clubbing or cyanosis. 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 Cranial nerves 2 to 7 intact. There is no fasciculation or atrophy. noted. No focal deficits observed. IMPRESSION: 1. No significant respiratory abnormalities by results of polysomnogram. 2. The patient continues to feel significant sleepiness. [place] Sleepiness Scale is in the range of 16 to 18. Differential diagnosis includes narcolepsy and idiopathic hypersomnia. 3. History of stroke and transient ischemic attacks x3 with some right-sided residual deficit. 4. Hypertension. 5. Hyperlipidemia. 6. Back problems. 7. Asthma. 8. Acid reflux. 9. Headaches. PLAN: 1. Polysomnogram with a following multiple sleep latency test for objective evaluation symptoms of excessive daytime sleepiness for differential diagnosis of narcolepsy. 2. Sleep hygiene with regular time in bed for at least 8 hours. 3. Precautions related to driving. No driving if feeling any sleepiness. Patient is aware of civil and criminal liability for unsafe driving. 4. Following plan after reviewing results of PSG with [facility]. Thank you very much for allowing me to participate in the management of your patient. Sincerely, Khari Lou MD, PhD, FAASM Diplomat of [employer] Sleep Medicine Board of [employer] [place] [employer] [facility] [place] PADMAJA / TREVON: [id number] /
== END ==
LOC: SLEEP 11:02
PROVIDERS: ATTEND Internal Medicine
DX: R40.0 Somnolence (principal); E78.5 Hyperlipidemia, unspecified; I10 Essential (primary) hypertension; J45.909 Unspecified asthma, uncomplicated; K21.9 Gastro-esophageal reflux disease without esophagitis; R51.9 Headache, unspecified; M53.80 Other specified dorsopathies, site unspecified; Z86.73 Personal history of transient ischemic attack (TIA), and cerebral infarction without residual deficits; Z87.891 Personal history of nicotine dependence

== ENCOUNTER → 2021-11-08 | Outpatient (CLI) | payer OTHER ==
--- NOTE | 2021-11-08 14:36 | SFUN ---
SLEEP CENTER FOLLOW UP NOTE DATE OF SERVICE: 11/08/2021 56-year-old gentleman has been followed in Sleep Center for evaluation and treatment of significant excessive daytime sleepiness. Recently the patient had a polysomnogram which showed no significant respiratory abnormalities. On the following day, patient had multiple sleep latency test with 5 naps, mean sleep latency was 7.3 minutes and sleep onset REM periods have been documented during nap 3. Patient continued to feel sleepiness during the day. [place] Sleepiness Scale is 16. MEDICATIONS: Clopidogrel, metoprolol, atorvastatin, gabapentin, sildenafil, fluticasone inhaler. PHYSICAL EXAMINATION: GENERAL: Patient in no distress. BP 146/91, HR 77, RR 16, weight 184.4 pounds. Height 5 feet and 7 inches. Oropharynx: Low position of soft palate under. NECK: Supple, no JVD. Thyroid is not palpable. LUNGS: Clear to percussion and to auscultation. Good air exchange. No wheezing or rhonchi. HEART: S1, S2 regular. No murmurs, gallops, or rubs. ABDOMEN: Soft and nontender. Bowel sounds are present. No organomegaly appreciated. EXTREMITIES: No clubbing or cyanosis. 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 Cranial nerves 2 to 7 intact. There is no fasciculation or atrophy. noted. No focal deficits observed. IMPRESSION: 1. Snoring has been documented during the sleep study. No significant respiratory abnormalities during sleep. 2. Multiple sleep latency test confirmed sleepiness in significant range. Mean sleep latency by 5 naps 7.3 minutes. One sleep onset REM periods has been documented. Differential diagnosis include narcolepsy without cataplexy, type 1. 3. Hypertension. 4. History of stroke. 5. History of transient ischemic attack. 6. Hyperlipidemia. 7. Back problems. 8. Asthma. 9. Acid reflux. 10.Episodes of headaches. PLAN: 1. I will start patient with modafinil 1 tablet 200 mg in the morning. The patient will start medication with one quarter to one half of the tablet, slowly increase the dose to one tablet to avoid headaches. 2. Extreme precautions related to driving. No driving if feeling sleepiness. 3. Sleep hygiene with regular time in bed for at least 8 hours. 4. Daytime naps permitted. 5. Follow-up visit in 4 months or earlier if patient has any problems. Thank you very much for allowing me to participate in management of your patient. Sincerely, Khari Lou MD, PhD, FAASM Diplomat of [place] [employer] Sleep Medicine Board of [place] [facility] [place] PADMAJA / TREVON: [id number] /
== END ==
LOC: SLEEP 11:42
PROVIDERS: ATTEND Internal Medicine
DX: G47.33 Obstructive sleep apnea (adult) (pediatric) (principal); R40.0 Somnolence; R06.83 Snoring; I10 Essential (primary) hypertension; E78.5 Hyperlipidemia, unspecified; J45.909 Unspecified asthma, uncomplicated; K21.9 Gastro-esophageal reflux disease without esophagitis; M54.89 Other dorsalgia; R51.9 Headache, unspecified; Z86.73 Personal history of transient ischemic attack (TIA), and cerebral infarction without residual deficits

== ENCOUNTER → 2022-02-12 | Outpatient (CLI) | payer OTHER ==
[2022-02-12 22:39] LABS: Immunoglobulin E 3.52 IU/mL (0.00-114.00)
[2022-02-12 22:48] LABS: Immunoglobulin E 3.53 IU/mL (0.00-114.00)
[2022-02-13 11:31] LABS: Alternaria alternata IgE <0.10 kU/L; Aspergillus fumagatus IgE <0.10 kU/L; Birch IgE <0.10 kU/L; Cat Epith & Dander IgE <0.10 kU/L; Cladosporian herbarum IgE <0.10 kU/L; Clam IgE <0.10 kU/L; Cockroach IgE <0.10 kU/L; Codfish IgE <0.10 kU/L; Dermato. farinae IgE <0.10 kU/L; Dog Dander IgE <0.10 kU/L; Egg White IgE <0.10 kU/L; Maple (Box Elder) IgE <0.10 kU/L; Oak IgE <0.10 kU/L; Peanut IgE <0.10 kU/L; Ragweed,Common IgE <0.10 kU/L; Red Top (Bentgrass) IgE <0.10 kU/L; Scallop IgE <0.10 kU/L; Shrimp IgE <0.10 kU/L; Soybean IgE <0.10 kU/L; Walnut IgE (Food) <0.10 kU/L
== END | disposition home or self-care (01) ==
LOC: LABWHC1 14:22
PROVIDERS: ATTEND Internal Medicine Critical Care Medicine
DX: J45.909 Unspecified asthma, uncomplicated (principal)
CPT/HCPCS: 36415; 82785; 85008; 86003

== ENCOUNTER → 2022-02-23 | Outpatient (CLI) | payer OTHER ==
--- NOTE | 2022-02-23 12:45 | CT ---
EXAMINATION TYPE: CT chest wo con DATE OF EXAM: 02/23/2022 COMPARISON: NONE HISTORY: Asthma CT DLP: 585.20 mGycm. Automated Exposure Control for Dose Reduction was Utilized. TECHNIQUE: CT scan of the thorax is performed without IV contrast. High-resolution protocol with 1 m m sequences obtained at 10 mm intervals in supine and prone technique FINDINGS: LUNGS: The lungs are grossly clear, there is no concerning parenchymal fibrotic change or linear scar ring. No peripheral reticulation. No honeycombing. There is no pleural effusion or pneumothorax seen . The tracheobronchial tree is patent. No bronchiectasis. No pulmonary masses. MEDIASTINUM: Lack of IV contrast and technique are noted to limit evaluation for mediastinal and haile cially hilar adenopathy. There are no definitive greater than 1 cm mediastinal lymph nodes. No card iomegaly or pericardial effusion is seen. Mild to moderate coronary artery calcification is present. OTHER: No additional significant abnormality is seen. IMPRESSION: No significant acute or chronic pulmonary process.
== END | disposition home or self-care (01) ==
LOC: RADCTMAIN 09:42
PROVIDERS: ATTEND Internal Medicine Critical Care Medicine
DX: J45.909 Unspecified asthma, uncomplicated (principal)
CPT/HCPCS: 71250

== ENCOUNTER 2022-04-04 11:37 | Day surgery (SDC) | payer OTHER ==
[2022-04-03 12:28] VITALS: BMI 26.1
[~2022-04-04 11:37] MED LIST: ALBUTEROL NEB (CONC) 2.5 MG/0.5 ML INHALATION ONE; ATROPINE SULFATE 0.4 MG/ML 1 ML VIAL IM ONE; HYDROmorphone 0.5 MG/0.5 ML SYRINGE IVP PRN; LACTATED RINGERS 1,000 ML IV SCH; LIDOCAINE 2% (PF) 20 MG/ML 5 ML VIAL INHALATION ONE; LIDOCAINE VISCOUS 300 MG/15 ML CUP MUCOUS MEM ONE
[2022-04-04] MEDS ORDERED: LACTATED RINGERS 1,000 ML IV ONE (12:15)
[2022-04-04 12:32] VITALS: TEMP 97.8
[2022-04-04] MEDS ORDERED: ATROPINE SULFATE 0.4 MG/ML 1 ML VIAL IM ONE (12:37)
[2022-04-04] MEDS ORDERED: KETAMINE 10 MG/ML 20 ML VIAL ONE (12:40)
[2022-04-04] MEDS ORDERED: PROPOFOL 10 MG/ML 20 ML VIAL IV ONE (12:40)
[2022-04-04] MEDS ORDERED: LIDOCAINE 2% INJ 20 MG/ML (2 ML VIAL) ONE (12:40)
[2022-04-04] MEDS ORDERED: LIDOCAINE 2% INJ 20 MG/ML INTRATRACH ONE (12:46)
[2022-04-04 12:58] VITALS: RESP 18
[2022-04-04 13:35] VITALS: BP 144/77; PULSE 66
--- NOTE | 2022-04-04 15:20 | PCN ---
PROCEDURE NOTE PULMONARY/CRITICAL CARE PROCEDURE NOTE: PROCEDURES PERFORMED: Bronchoscopy, airway examination, therapeutic lavage, bronchoalveolar lavage. PREOPERATIVE DIAGNOSIS: Chronic unrelenting cough. POSTOPERATIVE DIAGNOSIS: Chronic unrelenting cough. DESCRIPTION OF PROCEDURE: The patient's procedure took place in room #1 [facility]. There were informed consent and universal time-out. Anesthesia provided general anesthesia. After the patient was adequately sedated and being fully monitored, the bronchoscope was inserted through the left nostril. It passed through the left nasopharynx into the oropharynx. The hypopharynx was identified. It was topicalized. The hypopharyngeal structures including anterior commissure, true cords, false cords, piriform sinuses - right and left, valleculae, and epiglottis all appeared normal. There was no abnormality noted. The glottic opening was topicalized. The bronchoscope was pushed through the glottic opening into the trachea. There were fair amount of secretions noted throughout the trachea. They were purulent-looking. They were suctioned. There was mild tortuosity of the trachea, but there was no obstruction or mass. The tracheal cha was sharp. The right and left mainstem were topicalized. The right upper lobe and its 3 segments, right middle lobe and its 2 segments, right lower lobe and its 5 segments were all relatively normal, say for [id number] bronchitis and secretions. The secretions again were similar to the ones found in the trachea. On the left side, the left upper lobe proper and its 2 segments, the lingula and its 2 segments, and the left lower lobe and its 4 segments were found to be relatively normal, say for thick secretions, purulent-looking, with some [id number] bronchitis. There were some mucosal erythema and hyperemia bilaterally. There was no dominant mass or lesion. There was no bleeding. The bronchoscope was then wedged into the right middle lobe. We did a formal BAL. 40 mL of fluid was recovered. It will be sent to the laboratory for analysis including cytology and microbiology. Also, there will be a cell count and differential. The patient tolerated the procedure well. The bronchoscope was withdrawn. The patient will be recovered. There was no immediate complication. MMODL / IJN: [id number] /
[2022-04-04 23:06] LABS: Appearance,BF Clear
== END 2022-04-04 13:54 | disposition home or self-care (01) ==
LOC: ORWHC2ENDO 11:37
PROVIDERS: ATTEND Internal Medicine Critical Care Medicine
DX: R05.3 Chronic cough (principal); J45.909 Unspecified asthma, uncomplicated; I10 Essential (primary) hypertension; E78.5 Hyperlipidemia, unspecified; I69.351 Hemiplegia and hemiparesis following cerebral infarction affecting right dominant side; F31.9 Bipolar disorder, unspecified; G62.9 Polyneuropathy, unspecified; Z79.899 Other long term (current) drug therapy; Z79.02 Long term (current) use of antithrombotics/antiplatelets; Z87.891 Personal history of nicotine dependence; Z86.16 Personal history of COVID-19; Z90.89 Acquired absence of other organs; Z98.890 Other specified postprocedural states; Z97.2 Presence of dental prosthetic device (complete) (partial); Z82.49 Family history of ischemic heart disease and other diseases of the circulatory system
CPT/HCPCS: 88108; 88305; 89050; 87252; 87070; 87205; 87116; 87102; 87206; 31624; J2001 ×2; J0461; J2704

== ENCOUNTER 2022-09-05 09:26 | Emergency (ER) | payer OTHER ==
[2022-09-05] MEDS ORDERED: ASPIRIN 81 MG PO STA (09:54)
[2022-09-05] MEDS ORDERED: METOPROLOL TARTRATE 25 MG TAB PO STA (09:54)
[2022-09-05 09:57] LABS: Basophils % (A) 1 %; Eosinophils # (A) 0.3 k/uL (0-0.7); Eosinophils % (A) 3 %; HCT 45.8 % (39.0-53.0); HGB 15.8 gm/dL (13.0-17.5); Lymphocytes # (A) 1.9 k/uL (1.0-4.8); Lymphocytes % (A) 20 %; MCH 30.5 pg (25.0-35.0); MCHC 34.6 g/dL (31.0-37.0); MCV 88.3 fL (80.0-100.0); Mean Platelet Volume 7.7; Monocytes # (A) 0.5 k/uL (0-1.0); Monocytes % (A) 5 %; Neutrophils # (A) 6.8 k/uL (1.3-7.7); Neutrophils % (A) 69 %; Platelet Count 224 k/uL (150-450); RBC 5.18 m/uL (4.30-5.90); RDW 12.9 % (11.5-15.5); WBC 9.9 k/uL (3.8-10.6)
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
[2022-09-05 10:12] LABS: ALT 26 U/L (4-49); AST 33 U/L (17-59); African American GFR (CKD) >90 (>60 ml/min/1.73 sqM); Albumin 4.6 g/dL (3.5-5.0); Alkaline Phosphatase 68 U/L (38-126); Anion Gap 8 mmol/L; Blood Urea Nitrogen 13 mg/dL (9-20); Calcium 9.1 mg/dL (8.4-10.2); Carbon Dioxide 24 mmol/L (22-30); Chloride 107 mmol/L (98-107); Glucose 92 mg/dL (74-99); Magnesium 1.7 mg/dL (1.6-2.3); Non-African American GFR(CKD) >90 (>60 ml/min/1.73 sqM); Sodium 139 mmol/L (137-145); Total Bilirubin 0.8 mg/dL (0.2-1.3); Total Protein 7.6 g/dL (6.3-8.2)
[2022-09-05 10:13] LABS: INR 0.9 (<1.2); Partial Thromboplastin Time 23.2 sec (22.0-30.0); Prothrombin Time 9.9 sec (9.0-12.0)
--- NOTE | 2022-09-05 10:38 | XR ---
EXAMINATION TYPE: XR chest 2V DATE OF EXAM: 09/05/2022 COMPARISON: 10/14/2016 INDICATION: Chest pain TECHNIQUE: Frontal and lateral views of the chest are obtained. FINDINGS: The heart size is normal. The pulmonary vasculature is normal. The lungs are clear. IMPRESSION: 1. No acute pulmonary process.
[2022-09-05 11:32] VITALS: BP 151/108; PULSE 75; RESP 16; TEMP 98.6
== END 2022-09-05 11:30 | disposition home or self-care (01) ==
LOC: EC 09:26
DX: R07.89 Other chest pain (principal); I10 Essential (primary) hypertension; J45.909 Unspecified asthma, uncomplicated; G45.9 Transient cerebral ischemic attack, unspecified; F41.9 Anxiety disorder, unspecified; F31.9 Bipolar disorder, unspecified; F12.90 Cannabis use, unspecified, uncomplicated; F17.200 Nicotine dependence, unspecified, uncomplicated; Z79.899 Other long term (current) drug therapy
CPT/HCPCS: 36415; 71046; 80053; 83735; 84484; 85025; 85610; 85730; 93005; 99285

== ENCOUNTER 2024-11-18 09:32 | Day surgery (SDC) | payer OTHER ==
[2024-11-17 10:35] VITALS: BMI 27.3
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
[2024-11-18] MEDS: IV FLUID CONTINUATION 1,000 ML IV ONE (09:57)
[2024-11-18 10:05] VITALS: RESP 16; TEMP 97
[2024-11-18] MEDS: LACTATED RINGERS 1,000 ML IV SCH (10:12)
[2024-11-18] MEDS ORDERED: LIDOCAINE 1% INJ 10MG/ML (20 ML MDV) ONE (11:13)
[2024-11-18] MEDS ORDERED: PROPOFOL 10 MG/ML 20 ML VIAL IV ONE (11:13)
--- NOTE | 2024-11-18 11:31 | P.PCN ---
Date of Procedure: 11/18/24 Description of Procedure: PREOPERATIVE DIAGNOSIS: Gastroesophageal reflux disease. Epigastric abdominal pain POSTOPERATIVE DIAGNOSIS: Gastroesophageal reflux disease. Arteriovenous malformation of the stomach Gastritis, acute with bleeding Diaphragmatic hiatal hernia OPERATION: Esophagogastroduodenoscopy with cold forceps biopsies along esophagus, antrum and duodenum SURGEON: Ning Lassiter MD ANESTHESIA: MAC. INDICATIONS: The patient is a 59-year-old male who presents with epigastric pain and reflux disease. Benefits and risks of the procedure were described. Informed consent was obtained. DESCRIPTION: The patient was brought into the endoscopy suite and laid in the left lateral decubitus position. An Olympus gastroscope was passed along the posterior oropharynx down to the distal esophagus where the squamocolumnar junction was encountered at 35 cm from the incisors. The stomach was entered and no bile reflux was found. Additional findings are listed below. Biopsies with cold forceps were obtained of the antrum. The first through third portion of the duodenum was examined. Retroflexion of the scope confirmed Hill grade 3 lower esophageal valve. The squamocolumnar junction demonstrated LA grade B erosive esophagitis. The stomach was desufflated. The patient tolerated the procedure well. FINDINGS: Squamocolumnar junction 35 cm from the incisors. Diaphragmatic hiatus at 40 cm. Hiatal hernia, 5 cm, sliding-type Hill grade 3 lower esophageal valve. Arteriovenous malformation, 3 mm, gastric body without bleeding Acute gastritis with bleeding LA grade B erosive esophagitis, biopsies obtained. Biopsies obtained of the duodenum. Duodenitis identified RECOMMENDATIONS: Upper endoscopy as needed.
--- NOTE | 2024-11-18 11:48 | P.PCN ---
Date of Procedure: 11/18/24 Description of Procedure: PREOPERATIVE DIAGNOSIS: Personal history of colon polyps Colonoscopy screening POSTOPERATIVE DIAGNOSIS: Tubular adenoma sigmoid colon Tubular adenoma rectum Sigmoid diverticulosis Internal hemorrhoids, grade 2 OPERATION: Colonoscopy to the ileocecal valve and appendiceal orifice, cecum Colonoscopy with cold forceps biopsy SURGEON: Ning Lassiter MD. ANESTHESIA: MAC. INDICATIONS: The patient is an 59-year-old male who presents personal history of colon polyps. Last colonoscopy 5 years. Benefits and risks were described and informed consent was obtained. DESCRIPTION OF PROCEDURE: The patient had undergone GoLytely prep. The patient had been brought into the operating room and laid in the left lateral decubitus position. After adequate intravenous sedation, the rectum was examined with 2% lidocaine jelly. The prostate was unremarkable. External hemorrhoids were encountered. The rectal tone was within normal limits. No lesions were palpated in the rectal vault. An Olympus colonoscope was advanced until the cecum, ileocecal valve and appendiceal orifice were clearly viewed. The prep was fair. Sigmoid diverticulosis was encountered. Colonic polyps were found and removed. No evidence of focal colitis was found. Retroflexion of the scope demonstrated grade 2 internal hemorrhoids without active bleeding or inflammation. The colon was desufflated. The patient had tolerated the procedure well. Withdrawal time was over 6 minutes. FINDINGS: Aronchick preparation quality scale 2+ (1-5) Internal hemorrhoids, grade 2 External hemorrhoids, grade 2. No arteriovenous malformations. Sigmoid diverticulosis Removal of 3 polyps: - Cold forceps biopsy at 30 cm from the anal verge, 4 mm adenoma, sigmoid - Cold forceps biopsy at rectum x 2, 3 to 4 mm adenoma No focal colitis. RECOMMENDATIONS: Repeat colonoscopy 3 years, 2027 Plan - Discharge Summary Discharge Rx Participant: No New Discharge Prescriptions: New Omeprazole [PriLOSEC] 40 mg PO DAILY #14 cap Continue Divalproex ER [Depakote ER] 1,500 mg PO HS Albuterol Inhaler [Ventolin Hfa Inhaler] 1 - 2 puff INHALATION Q6H PRN PRN Reason: Shortness Of Breath Atorvastatin [Lipitor] 80 mg PO HS Clopidogrel [Plavix] 75 mg PO HS Losartan Potassium 100 mg PO HS Discharge Medication List Clopidogrel [Plavix] 75 mg PO HS 04/03/22 [History] Divalproex ER [Depakote ER] 1,500 mg PO HS 09/05/22 [History] Albuterol Inhaler [Ventolin Hfa Inhaler] 1 - 2 puff INHALATION Q6H PRN 11/17/24 [History] Atorvastatin [Lipitor] 80 mg PO HS 11/17/24 [History] Losartan Potassium 100 mg PO HS 11/17/24 [History] Omeprazole [PriLOSEC] 40 mg PO DAILY #14 cap 11/18/24 [Rx] Follow up Appointment(s)/Referral(s): Ning Lassiter MD [STAFF PHYSICIAN] - 12/08/24 2:30 pm Patient Instructions/Handouts: Diverticulosis Diet (GEN), Diverticulosis (GEN), Colorectal Polyps (GEN) Activity/Diet/Wound Care/Special Instructions: Start Plavix 11/20/2024. Repeat colonoscopy 3 years, 2027 Discharge Disposition: HOME SELF-CARE
[2024-11-18 13:18] VITALS: BP 118/78; PULSE 72
== END 2024-11-18 13:46 | disposition home or self-care (01) ==
LOC: ORWHC2ENDO 09:32
PROVIDERS: ATTEND Surgery Plastic and Reconstructive Surgery
DX: Z12.11 Encounter for screening for malignant neoplasm of colon (principal); Z86.0100 Personal history of colon polyps, unspecified; K21.00 Gastro-esophageal reflux disease with esophagitis, without bleeding; D72.820 Lymphocytosis (symptomatic); K31.9 Disease of stomach and duodenum, unspecified; D12.5 Benign neoplasm of sigmoid colon; K62.1 Rectal polyp; K44.9 Diaphragmatic hernia without obstruction or gangrene; K57.30 Diverticulosis of large intestine without perforation or abscess without bleeding; K31.819 Angiodysplasia of stomach and duodenum without bleeding; K64.1 Second degree hemorrhoids; E78.5 Hyperlipidemia, unspecified; G47.30 Sleep apnea, unspecified; I10 Essential (primary) hypertension; Z87.891 Personal history of nicotine dependence; Z86.73 Personal history of transient ischemic attack (TIA), and cerebral infarction without residual deficits; Z79.02 Long term (current) use of antithrombotics/antiplatelets
CPT/HCPCS: 45380; 43239; J2003; J2704; 88305